=== PATIENT | female | born 1995 | race Asian ===

== ENCOUNTER 2020-10-01 22:10 | Inpatient (IN) | payer OTHER ==
[~2020-10-01] VITALS: Ht 165.1 cm; Wt 60.1 kg
[2020-10-01 23:25] LABS: HEMATOCRIT 36.3 % (36.0-47.0); MEAN CORPUSCULAR HEMOGLOBIN 29.3 pg (27.0-33.0); MEAN CORPUSCULAR HGB CONC 33.1 g/dl (32.0-36.5); MEAN CORPUSCULAR VOLUME 88.8 fl (80.0-96.0); PLATELET COUNT, AUTOMATED 279 10^3/uL (150-450); RED BLOOD COUNT 4.09 10^6/uL (4.00-5.40)
[2020-10-01 23:44] LABS: AMPHETAMINES LEVEL URINE NEGATIVE (NEGATIVE); BARBITURATES URINE NEGATIVE (NEGATIVE); BENZODIAZEPINES URINE NEGATIVE (NEGATIVE); CANNABINOIDS URINE NEGATIVE (NEGATIVE); COCAINE METABOLITE URINE NEGATIVE (NEGATIVE); METHADONE URINE NEGATIVE (NEGATIVE); OPIATES URINE NEGATIVE (NEGATIVE); PHENCYCLIDINE URINE NEGATIVE (NEGATIVE)
[2020-10-01 23:59] LABS: ACETAMINOPHEN LEVEL < 2.0 UG/ML (10.0-30.0); ALBUMIN 3.6 GM/DL (3.2-5.2); ALT/SGPT 18 U/L (12-78); BILIRUBIN,DIRECT 0.1 MG/DL (0.0-0.2); BILIRUBIN,TOTAL 0.4 MG/DL (0.2-1.0); BLOOD UREA NITROGEN 16 MG/DL (7-18); CALCIUM LEVEL 9.2 MG/DL (8.5-10.1); CARBON DIOXIDE LEVEL 26 MEQ/L (21-32); CHLORIDE LEVEL 105 MEQ/L (98-107); CREATININE FOR GFR 1.03 MG/DL (0.55-1.30); ETHYL ALCOHOL (ETHANOL) < 0.003 % (0.000-0.010); GLOMERULAR FILTRATION RATE > 60.0 (>60); GLUCOSE, FASTING 88 MG/DL (70-100); POTASSIUM SERUM 4.1 MEQ/L (3.5-5.1); SALICYLATE LEVEL < 1.7 MG/DL (5.0-30.0); SODIUM LEVEL 139 MEQ/L (136-145); TOTAL PROTEIN 6.9 GM/DL (6.4-8.2)
[2020-10-02] MEDS ORDERED: YAZ1TAB PO (03:35)
[2020-10-02 04:29] LABS: HCG, SERUM QUALITATIVE NEGATIVE (NEGATIVE)
[2020-10-02] MEDS ORDERED: FLUV50TA PO (05:23)
[2020-10-02 09:27] LABS: RSV AMPLIFICATION NEGATIVE (NEGATIVE)
[2020-10-02] MEDS ORDERED: traZODone 50 MG TAB PO PRN (10:30)
[2020-10-02] MEDS ORDERED: ACETAMINOPHEN TAB 650MG DOSE (2X325MG) PO PRN (10:30)
[2020-10-02] MEDS ORDERED: MAALOX 30 ML SUSP *UDC PO PRN (10:30)
[2020-10-02] MEDS ORDERED: MOM 30ML SUSPENSION UDC PO PRN (10:30)
[2020-10-02] MEDS ORDERED: OLANZapine ORAL DISINTEGRATING TAB 5MG PO PRN (10:30)
--- OUTSIDE RECORDS SUMMARY | 2020-10-02 10:39 | CCD ---
Author Author [facility] Address Unknown Phone Unavailable Support Name Relationship Address Phone [facility] Next Of Kin [address] [place] [address] Unavailable [employer] Next Of Kin [id number] [place], [place] [id number] Re-disclosure Warning The records that you are about to access may contain information from federally-assisted alcohol or drug abuse programs. If such information is present, then the following federally mandated warning applies: This information has been disclosed to you from records protected by federal confidentiality rules (42 CFR part 2). The federal rules prohibit you from making any further disclosure of this information unless further disclosure is expressly permitted by the written consent of the person to whom it pertains or as otherwise permitted by 42 CFR part 2. A general authorization for the release of medical or other information is NOT sufficient for this purpose. The Federal rules restrict any use of the information to criminally investigate or prosecute any alcohol or drug abuse patient.The records that you are about to access may contain highly sensitive health information, the redisclosure of which is protected by Article 27-F of the [facility] Public Health law. If you continue you may have access to information: Regarding HIV / AIDS; Provided by facilities licensed or operated by the [facility] Office of Mental Health; or Provided by the [facility] Office for People With Developmental Disabilities. If such information is present, then the following [facility] mandated warning applies: This information has been disclosed to you from confidential records which are protected by state law. State law prohibits you from making any further disclosure of this information without the specific written consent of the person to whom it pertains, or as otherwise permitted by law. Any unauthorized further disclosure in violation of state law may result in a fine or senior living sentence or both. A general authorization for the release of medical or other information is NOT sufficient authorization for further disc losure. Insurance Providers Payer name Policy type / Coverage type Policy ID Covered republican ID Covered republican's relationship to fernandez Policy Fernandez Plan Information [facility] [employer] [id number]
[2020-10-02 11:40] VITALS: BP 137/82
[2020-10-02 16:00] VITALS: BP 134/80
[2020-10-02] MEDS: GIANVI PO SCH (17:04)
--- NOTE | 2020-10-02 18:40 | MHHPE ---
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 She said this was during an argument with her , and she apparently sent this text to her . The patient was then minimizing everything, but the then admitted that the patient has voiced threats like this before. The patient states that she has a history of treatment for depression and anxiety. She attends [facility], and she says they just started her 2 weeks ago on Luvox 50 mg every night for the first time. The patient says she has never taken any other psychotropic medications before this. I asked her if she has been diagnosed with obsessive compulsive disorder, because Luvox is often prescribed particularly for that diagnosis. She says that she does obsess about having to write something over and over, but she became guarded, and she said that it was something that she really did not want to discuss. PAST PSYCHIATRIC HISTORY: The patient says she has never had any prior psychiatric admissions. She says that she has a history of cutting her thighs with scissors, and she said she had not done it for awhile but started up again and last did this yesterday, and she also has some superficial cuts to her left wrist. She says she has never actually made any prior suicidal attempts. FAMILY HISTORY: She says both parents have anxiety, and her mother has told her that she has taken medications for anxiety. She denies any suicides in the family. MEDICAL HISTORY: She denies any acute medical problems. SUBSTANCE ABUSE HISTORY: She denies any problems with alcohol or drugs. Toxicology was negative. ABUSE HISTORY: She denies that she has been abused. REVIEW OF SYSTEMS: VITAL SIGNS: Blood pressure 139/83, pulse 84, respirations 18. APPEARANCE: She did not have any involuntary movements of her upper extremities. Her gait was normal. She did not appear to be in any apparent distress. All other systems were reviewed and found to be negative. MENTAL STATUS EXAMINATION: This patient is alert and oriented times three. Eye contact is fair. Psychomotor activity is decreased. She is verbally spontaneous. There is no formal thought disorder noted. Mood is depressed and anxious. Affect full range and appropriate. She is not suicidal, but I think she is minimizing at this point. She denies being homicidal. She is not psychotic. Concentration is fair. Memory is intact. Insight and judgment are poor. DIAGNOSES: 1. Unspecified depressive disorder. 2. Unspecified anxiety disorder. TREATMENT PLAN: At this point, the patient does have anxiety and depression. She is denying suicidal ideations, but she is, I feel, really minimizing her symptoms. She is guarded, and so we will further evaluate her for her symptoms of depression and anxiety and for her suicidal ideations. We will continue the Luvox 50 mg every night, and we will continue to titrate her medications as indicated. Once stable, she will be discharged with appropriate followup.
[2020-10-02] MEDS: fluvoxaMINE MALEATE 50 MG TAB PO SCH (20:19)
[2020-10-03 06:12] VITALS: BP 131/75
[2020-10-03] MEDS: GIANVI PO SCH (08:14)
--- NOTE | 2020-10-03 16:29 | HPEPDOC ---
General Date of Admission Oct 02, 2020 at 10:25 Date of Service: Oct 03, 2020 Chief Complaint The patient is a 25-year-old female admitted with a reason for visit of Unspecified Depressive Disorder. Source: Patient Exam Limitations: No limitations Timing/Duration: Week(s) History of Present Illness Patient 25 years old female with past medical history of anxiety presented hospital with suicidal ideation. Patient stated that after argument with her she wanted to kill herself . Of note she never had suicidal ideation in the past. Patient denied fever, chills, nausea, vomiting, diarrhea or dysuria Home Medications Scheduled Ethinyl Estradiol/Drospirenone (Myrtle 28 Tablet) 1 Each Tablet, 1 TAB PO DAILY, (Reported) Fluvoxamine Maleate (Fluvoxamine Maleate) 50 Mg Tablet, 50 MG PO QHS, (Reported) Allergies Coded Allergies: No Known Allergies (Unverified , 10/01/20) Past Medical History Medical History Anxiety Family History I personally reviewed family history and found not pertinent. Social History * Smoker: Denies Alcohol: Denies Drugs: denies A-FIB/CHADSVASC A-FIB History Current/History of A-Fib/PAF?: No Current PO Anticoag Therapy: No Review of Systems Constitutional: Denies: Chills Eyes: Denies: Pain ENT: Denies: Head Aches Skin: Denies: Rash, Lesions Pulmonary: Denies: Dyspnea Gastrointestinal: Denies: Nausea Genitourinary: Denies: Dysuria, Frequency Hematologic: Denies: Bruising Endocrine: Denies: Polydipsia Musculoskeletal: Denies: Neck Pain Neurological: Denies: Weakness Psych: Reports: Anxiety Physical Examination General Exam: Positive: Alert, Cooperative Eye Exam: Positive: PERRLA ENT Exam: Positive: Atraumatic Neck Exam: Positive: Supple; Negative: JVD Chest Exam: Positive: Clear to auscultation Heart Exam: Positive: Rate Normal Telemetry: Positive: No significant arrhythmia Abdomen Exam: Positive: Normal bowel sounds Extremity Exam: Positive: Clubbing Skin Exam: Positive: Nl turgor and temperature Neuro Exam: Positive: Normal Gait Psych Exam: Positive: Anxiety Vital Signs Vital Signs Date Time Temp Pulse Resp B/P (MAP) Pulse Ox O2 Delivery O2 Flow Rate FiO2 10/03/20 06:12 99.2 102 16 131/75 (93) 96 Room Air Assessment/Plan Patient 25 years old female with past medical history of anxiety presented hospital with suicidal ideation. Patient stated that after argument with her she wanted to kill herself . Of note she never had suicidal ideation in the past. Patient denied fever, chills, nausea, vomiting, diarrhea or dysuria Problems (1) Suicidal ideation Status: Acute Problem Text: Defer treatment of anxiety and depression to psych team Plan / VTE VTE Prophylaxis Ordered?: No VTE Exclusion Mechanical Proph: Low Risk for VTE PHOENIX BURGOS DO Oct 03, 2020 16:29
[2020-10-03 16:32] VITALS: BP 121/65
[2020-10-03] MEDS: fluvoxaMINE MALEATE 50 MG TAB PO SCH (20:27)
[2020-10-04 06:20] VITALS: BP 136/60
[2020-10-04] MEDS: GIANVI PO SCH (08:11)
--- NOTE | 2020-10-04 09:20 | MHIPN ---
[facility] PROGRESS NOTE DATE: 10/03/2020 The patient today tells me that she is doing okay. She has no complaints. She says she slept good. She continues to deny having suicidal intent when she had texted her . MENTAL STATUS EXAMINATION: She is alert and oriented times three. She is cooperative, verbally spontaneous. There is no formal thought disorder noted. She says her mood is okay. Affect is flat. She is not psychotic. She is denying suicidal or homicidal ideations. Concentration is fair. Memory intact. Insight and judgment is fair. DIAGNOSES: Unspecified depressive disorder. Unspecified anxiety disorder. Borderline personality disorder. TREATMENT PLAN: We will continue to monitor the patient for continued elevation and stabilization of her mood and continued resolution of suicidal ideations and we will continue to titrate her medications as indicated.
[2020-10-04 16:08] VITALS: BP 125/61
[2020-10-04] MEDS: fluvoxaMINE MALEATE 50 MG TAB PO SCH (20:30)
[2020-10-05 06:33] VITALS: BP 127/71
[2020-10-05] MEDS: GIANVI PO SCH (08:18)
--- NOTE | 2020-10-05 12:51 | MHIPN ---
[facility] INPATIENT PROGRESS NOTE DATE: 10/04/20 HISTORY OF PRESENT ILLNESS: The patient today states that she continues to do well. He has no complaints. She slept good. She continues to deny that she had suicidal intent when she text her . MENTAL STATUS EXAM: Patient is alert and oriented times 3. Eye contact is very good. She is verbally spontaneous. There is no formal thought disorder noted. She says her mood is good. Affect constricted, but appropriate to mood. She is not psychotic. She denies suicidal or homicidal ideations. Concentration is fair. Memory is intact. Insight and judgment is fair. DIAGNOSES: 1. Unspecified depressive disorder. 2. Unspecified anxiety disorder. 3. Borderline personality disorder. TREATMENT PLAN: We will continue to monitor the patient for continued elevation and stabilization of her mood and continue the resolution of suicidal ideation.
[2020-10-05 17:44] VITALS: BP 130/77
[2020-10-05] MEDS: fluvoxaMINE MALEATE 50 MG TAB PO SCH (20:32)
[2020-10-06 07:02] VITALS: BP 126/64
[2020-10-06] MEDS: GIANVI PO SCH (08:27)
--- NOTE | 2020-10-08 04:30 | MHDS ---
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 Please refer to the admission note for further details of the patient's history and prior treatment. MEDICAL HISTORY: The patient did have a physical examination by the hospitalist and there is no acute medical problems noted. She had a complete blood count (CBC) and complete metabolic panel (BMP) done that was within normal limits and toxicology was negative for any drugs. DIAGNOSES: 1. Unspecified depressive disorder. 2. Unspecified anxiety disorder. 3. Borderline personality disorder. MENTAL STATUS EXAMINATION: Upon discharge, she is alert and oriented times 3. Eye contact was good. She was verbally spontaneous. Her mood was okay. Affect constricted, but appropriate. There is no formal thought disorder. She is not psychotic. She was denying suicidal or homicidal ideations. Concentration fair. Memory intact. Insight and judgment good. COURSE DURING HOSPITALIZATION: The patient was monitored throughout and she continued to deny suicidal ideations throughout. The patient was on Luvox 50 mg every night at bedtime upon admission, apparently been started two weeks before, so I continued it and she was discharged on the same dose to follow up at [facility].
== END 2020-10-06 14:05 | disposition home or self-care (01) | DRG 881 ==
LOC: M ED 22:10 → M ED INP 10-02 10:25 → M PSY 10-02 11:21
PROVIDERS: ADMIT Psychiatry & Neurology Psychiatry; ATTEND Psychiatry & Neurology Psychiatry
DX: F32.9 Major depressive disorder, single episode, unspecified (principal); R45.851 Suicidal ideations; F41.9 Anxiety disorder, unspecified; F60.3 Borderline personality disorder